=== PATIENT | female | born 1990 | race Caucasian/White ===

== ENCOUNTER 2017-05-05 14:02 | Emergency (ER) | payer SELFPAY ==
--- NOTE | 2017-05-05 14:29 | EDM.PDOC ---
ED HPI GENERAL MEDICAL PROBLEM - General Chief Complaint: ENT Problem Stated Complaint: TOOTH AID Time Seen by Provider: 05/05/17 14:25 Source of Information: Reports: Patient History Limitations: Reports: No Limitations - History of Present Illness INITIAL COMMENTS - FREE TEXT/NARRATIVE: History of present illness: [19-year-old female comes in with complaints of dental pain, swollen gums, and concern of abscess] Review of systems: As per history of present illness and below otherwise all systems reviewed and negative. Past medical history: As per history of present illness and as reviewed below otherwise noncontributory. Surgical history: As per history of present illness and as reviewed below otherwise noncontributory. Social history: No reported history of drug or alcohol abuse. Family history: As per history of present illness and as reviewed below otherwise noncontributory. Physical exam: HEENT: Atraumatic, normocephalic, pupils reactive, negative for conjunctival pallor or scleral icterus, mucous membranes moist, throat clear, neck supple, nontender, trachea midline. Lungs: Clear to auscultation, breath sounds equal bilaterally, chest nontender. Heart: S1S2, regular, negative for clicks, rubs, or JVD. Abdomen: Soft, nondistended, nontender. Negative for masses or hepatosplenomegaly. Negative for costovertebral tenderness. Pelvis: Stable nontender. Genitourinary: Deferred. Rectal: Deferred. Extremities: Atraumatic, negative for cords or calf pain. Neurovascular unremarkable. Neuro: Awake, alert, oriented. Cranial nerves II through XII unremarkable. Cerebellum unremarkable. Motor and sensory unremarkable throughout. Exam nonfocal. Dental: Multiple fractured teeth with caries swollen gums Diagnostics: [] Therapeutics: [] Impression: [#1 dental caries #2 fractured teeth #3 dental abscess] Plan: [Balls, antibiotics, pain medicine] Definitive disposition and diagnosis as appropriate pending reevaluation and review of above. 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: , 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) Other OB/BYN History: tubes tied, Musculoskeletal History: Reports: None Neurological History: Reports: None Psychiatric History: Reports: None Endocrine/Metabolic History: Reports: None Hematologic History: Reports: None Oncologic (Cancer) History: Reports: Cervix Dermatologic History: Reports: None - Past Surgical History Head Surgeries/Procedures: Reports: None HEENT Surgical History: Reports: None Cardiovascular Surgical History: Reports: None Respiratory Surgical History: Reports: None GI Surgical History: Reports: None Female Surgical History: Reports: None Endocrine Surgical History: Reports: None Neurological Surgical History: Reports: None Musculoskeletal Surgical History: Reports: None Oncologic Surgical History: Reports: None Dermatological Surgical History: Reports: None Social & Family History - Family History Family Medical History: Noncontributory - Tobacco Use Smoking Status *Q: Never Smoker - Caffeine Use Caffeine Use: Reports: Tea - Recreational Drug Use Recreational Drug Use: No ED ROS GENERAL - Review of Systems Review Of Systems: See Below (See history of present illness) ED EXAM, GENERAL - Physical Exam Exam: See Below (See history of present illness) Course - Vital Signs Last Recorded V/S: Last Vital Signs Temp 36.4 C 05/05/17 14:10 Pulse 88 05/05/17 14:10 Resp 20 05/05/17 14:10 BP 124/77 05/05/17 14:10 Pulse Ox 98 05/05/17 14:10 Departure - Departure Time of Disposition: 14:50 Disposition: Home, Self-Care 01 Condition: Good Clinical Impression: Dental abscess, Dental caries extending into dentin - Discharge Information Referrals: PCP,None [Primary Care Provider] - Additional Instructions: The following information is given to patients seen in the emergency department who are being discharged to home. This information is to outline your options for follow-up care. We provide all patients seen in our emergency department with a follow-up referral. The need for follow-up, as well as the timing and circumstances, are variable depending upon the specifics of your emergency department visit. If you don't have a primary care physician on staff, we will provide you with a referral. We always advise you to contact your personal physician following an emergency department visit to inform them of the circumstance of the visit and for follow-up with them and/or the need for any referrals to a consulting specialist. The emergency department will also refer you to a specialist when appropriate. This referral assures that you have the opportunity for follow-up care with a specialist. All of these measure are taken in an effort to provide you with optimal care, which includes your follow-up. Under all circumstances we always encourage you to contact your private physician who remains a resource for coordinating your care. When calling for follow-up care, please make the office aware that this follow-up is from your recent emergency room visit. If for any reason you are refused follow-up, please contact the [facility] Emergency Department at and asked to speak to the emergency department charge nurse. Take medication as directed Follow-up with dentist as discussed Return to ED as needed as discussed
[2017-05-05] MEDS ORDERED: Lidocaine 2% Viscous Solution 15 ML Cup PO ONE (14:30)
[2017-05-05] MEDS ORDERED: Benzocaine 20% Topical Spray UD MUCMEM ONE (14:30)
== END 2017-05-05 15:10 | disposition home or self-care (01) ==
LOC: MW.ED 14:02
DX: K04.7 Periapical abscess without sinus (principal); K03.81 Cracked tooth; K02.9 Dental caries, unspecified
CPT/HCPCS: 99282; A9270

== ENCOUNTER 2017-08-11 08:34 | Emergency (ER) | payer MEDICAID ==
[2017-08-11] MEDS ORDERED: Ondansetron 4 MG Tab.DIS PO ONE (09:24)
[2017-08-11] MEDS ORDERED: Albuterol/Ipratropium 3.0-0.5 MG/3 ML Neb Soln NEB ONE (09:28)
--- NOTE | 2017-08-11 09:28 | EDM.PDOC ---
ED HPI GENERAL MEDICAL PROBLEM - General Chief Complaint: General Stated Complaint: FEVER, BODY CHILLS Time Seen by Provider: 08/11/17 09:18 - History of Present Illness INITIAL COMMENTS - FREE TEXT/NARRATIVE: HISTORY AND PHYSICAL: History of present illness: The patient is a 19-year-old female with a history of asthma who presents with 4 days of subjective fever chills body aches tacky cough intermittent nausea and vomiting and loose stools. Patient says that her asthma has been acting up with the symptoms and that she did not get an influenza shot this year. Patient denies as she has had a bilateral tubal ligation and has no abdominal complaints. She has no urinary complaints and says she has been trying to take Gatorade and Pedialyte and able to intermittently tolerate and other times she will cough and vomited up. She has generalized body aches and malaise and she has 2 small children at home which is [id number] were also ill. Review of systems: As per history of present illness and below otherwise all systems reviewed and negative. Past medical history: As per history of present illness and as reviewed below otherwise noncontributory. Surgical history: As per history of present illness and as reviewed below otherwise noncontributory. Social history: No reported history of drug or alcohol abuse. Family history: As per history of present illness and as reviewed below otherwise noncontributory. Physical exam: Gen.: Well-developed well-nourished female who is nontoxic and has a hacking cough in the ER. Vital signs of an reviewed by me. HEENT: Atraumatic, normocephalic, pupils reactive, negative for conjunctival pallor or scleral icterus, mucous membranes moist, throat clear, neck supple, nontender, trachea midline. Lungs: Clear to auscultation with diminished breath sounds in the bases and occasional coarse breath sound but no worker breathing and no breathlessness, breath sounds equal bilaterally, chest nontender. Heart: S1S2, regular rate and rhythm no overt murmurs Abdomen: Soft, nondistended, nontender. NABS Pelvis: Deferred Genitourinary: Deferred. Rectal: Deferred. Extremities: Atraumatic, negative for cords or calf pain. Neurovascular unremarkable. Neuro: Awake, alert, oriented. Cranial nerves II through XII unremarkable. Cerebellum unremarkable. Motor and sensory unremarkable throughout. Exam nonfocal. Diagnostics: Chest x-ray influenza UA Patient requested blood testing so I will do CBC CMP Therapeutics: Zofran duo neb Patient is aware of all testing results and that we will give prednisone for home I will recommend continuing with her nebulizer treatments that she has as well as cough medicine and Zofran to use as needed. Although we have encouraged her to take sips of fluid here she has not been very good doing that but I encouraged her to continue Impression: Viral illness with history of asthma Definitive disposition and diagnosis as appropriate pending reevaluation and review of above. 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) Other OB/BYN History: tubes tied, Musculoskeletal History: Reports: None Neurological History: Reports: None Psychiatric History: Reports: None Endocrine/Metabolic History: Reports: None Hematologic History: Reports: None Oncologic (Cancer) History: Reports: Cervix Dermatologic History: Reports: None - Infectious Disease History Infectious Disease History: Reports: Chicken Pox, Shingles - Past Surgical History Head Surgeries/Procedures: Reports: None HEENT Surgical History: Reports: None Cardiovascular Surgical History: Reports: None Respiratory Surgical History: Reports: None GI Surgical History: Reports: None Female Surgical History: Reports: None Endocrine Surgical History: Reports: None Neurological Surgical History: Reports: None Musculoskeletal Surgical History: Reports: None Oncologic Surgical History: Reports: None Dermatological Surgical History: Reports: None Social & Family History - Family History Family Medical History: Noncontributory - Tobacco Use Smoking Status *Q: Former Smoker Used Tobacco, but Quit: Yes Month Tobacco Last Used: 2013 - Caffeine Use Caffeine Use: Reports: Tea - Recreational Drug Use Recreational Drug Use: No ED ROS GENERAL - Review of Systems Review Of Systems: ROS reveals no pertinent complaints other than HPI. ED EXAM, GENERAL - Physical Exam Exam: See Below (See dictation) Course - Vital Signs Last Recorded V/S: Last Vital Signs Temp 36.6 C 08/11/17 08:55 Pulse 83 08/11/17 08:55 Resp 18 08/11/17 08:55 BP 125/67 08/11/17 08:55 Pulse Ox 98 08/11/17 08:55 - Orders/Labs/Meds Orders: Active Orders 24 hr Category Date Time Status RT Aerosol Therapy [RC] ASDIRECTED Care 08/11/17 09:28 Active CULTURE URINE [RM] Stat Lab 08/11/17 09:55 Received Labs: Laboratory Tests 08/11/17 08/11/17 08/11/17 Range/Units 09:55 10:15 10:15 WBC 6.92 (4.0-11.0) K/uL RBC 5.26 (4.30-5.90) M/uL Hgb 14.4 (12.0-16.0) g/dL Hct 42.5 (36.0-46.0) % MCV 80.8 (80.0-98.0) fL MCH 27.4 (27.0-32.0) pg MCHC 33.9 (31.0-37.0) g/dL RDW Std Deviation 38.9 (28.0-62.0) fl RDW Coeff of Meredith 13 (11.0-15.0) % Plt Count 196 (150-400) K/uL MPV 11.80 (7.40-12.00) fL Neut % (Auto) 49.1 (48.0-80.0) % Lymph % (Auto) 39.9 (16.0-40.0) % [place] % (Auto) 8.2 (0.0-15.0) % Eos % (Auto) 1.9 (0.0-7.0) % Baso % (Auto) 0.9 (0.0-1.5) % Neut # (Auto) 3.4 (1.4-5.7) K/uL Lymph # (Auto) 2.8 H (0.6-2.4) K/uL [place] # (Auto) 0.6 (0.0-0.8) K/uL Eos # (Auto) 0.1 (0.0-0.7) K/uL Baso # (Auto) 0.1 (0.0-0.1) K/uL Nucleated RBC % 0.0 /100WBC Nucleated RBCs # 0 K/uL Sodium 137 (136-146) mmol/L Potassium 3.8 (3.5-5.1) mmol/L Chloride 109 (98-110) mmol/L Carbon Dioxide 19 L (21-31) mmol/L BUN 13 (6.0-23.0) mg/dL Creatinine 0.8 (0.6-1.5) mg/dL Est Cr Clr Drug Dosing 105.61 mL/min Estimated GFR (MDRD) > 60.0 ml/min Glucose 103 (60-110) mg/dL Calcium 9.4 (8.8-10.8) mg/dL Total Bilirubin 0.4 (0.1-1.5) mg/dL AST 13 (5-40) IU/L ALT 24 (8-54) IU/L Alkaline Phosphatase 72 (40-150) Total Protein 6.9 (6.0-8.0) g/dL Albumin 4.2 (3.5-5.0) g/dL Globulin 2.7 (2.0-3.5) g/dL Albumin/Globulin Ratio 1.6 (1.3-2.8) Urine Color YELLOW Urine Appearance CLEAR Urine pH 6.0 (5.0-8.0) Ur Specific [place] 1.025 (1.001-1.035) Urine Protein NEGATIVE (NEGATIVE) mg/dL Urine Glucose (UA) NEGATIVE (NEGATIVE) mg/dL Urine Ketones NEGATIVE (NEGATIVE) mg/dL Urine Occult Blood NEGATIVE (NEGATIVE) Urine Nitrite POSITIVE H (NEGATIVE) Urine Bilirubin NEGATIVE (NEGATIVE) Urine Urobilinogen 0.2 (<2.0) EU/dL Ur Leukocyte Esterase NEGATIVE (NEGATIVE) Urine RBC 0-1 (0-2/HPF) Urine WBC 0-1 (0-5/HPF) Ur Epithelial Cells FEW (NONE-FEW) Urine Bacteria 1+ H (NEGATIVE) Meds: Medications Discontinued Medications Generic Name Dose Route Start Last Admin Trade Name Freq PRN Reason Stop Dose Admin Albuterol/Ipratropium 3 ml 08/11/17 09:28 08/11/17 09:32 Duoneb 3.0-0.5 Mg/3 Ml NEB 08/11/17 09:29 3 ml ONETIME ONE Administration Ondansetron HCl 4 mg 08/11/17 09:24 08/11/17 09:58 Zofran Odt PO 08/11/17 09:25 4 mg ONETIME ONE Administration Departure - Departure Time of Disposition: 11:04 Disposition: Home, Self-Care 01 Condition: Good Clinical Impression: Viral illness - Discharge Information Referrals: PCP,None [Primary Care Provider] - Forms: ED Department Discharge Additional Instructions: The following information is given to patients seen in the emergency department who are being discharged to home. This information is to outline your options for follow-up care. We provide all patients seen in our emergency department with a follow-up referral. The need for follow-up, as well as the timing and circumstances, are variable depending upon the specifics of your emergency department visit. If you don't have a primary care physician on staff, we will provide you with a referral. We always advise you to contact your personal physician following an emergency department visit to inform them of the circumstance of the visit and for follow-up with them and/or the need for any referrals to a consulting specialist. The emergency department will also refer you to a specialist when appropriate. This referral assures that you have the opportunity for followup care with a specialist. All of these measure are taken in an effort to provide you with optimal care, which includes your followup. Under all circumstances we always encourage you to contact your private physician who remains a resource for coordinating your care. When calling for followup care, please make the office aware that this follow-up is from your recent emergency room visit. If for any reason you are refused follow-up, please contact the [facility] emergency department at and ask to speak to the emergency department charge nurse. [facility] Primary care- [place] [address] Please continue to push fluids such as Gatorade and water and juices and eat small bites of food. You should be sipping and drinking fluids all throughout your awake time. Please continue to use her nebulizer treatments at home every 6 hours and take all medications as prescribed. Please call and follow-up with one of our clinic providers as we discussed next week and return to ER as needed and as discussed - My Orders Last 24 Hours: My Active Orders 08/11/17 09:28 RT Aerosol Therapy [RC] ASDIRECTED 08/11/17 09:55 CULTURE URINE [RM] Stat - Assessment/Plan Last 24 Hours: My Active Orders 08/11/17 09:28 RT Aerosol Therapy [RC] ASDIRECTED 08/11/17 09:55 CULTURE URINE [RM] Stat
--- NOTE | 2017-08-11 10:05 | CR ---
PA and lateral chest Clinical history: Chest pain and shortness of breath Comparison: None Findings: Costophrenic angles are sharp. The cardiac mediastinum is normal and the lungs are clear. Impression: Normal chest
[2017-08-11 10:49] LABS: CHLORIDE,CL 109 mmol/L (98-110); SODIUM,NA 137 mmol/L (136-146)
== END 2017-08-11 11:10 | disposition home or self-care (01) ==
LOC: MW.ED 08:34
DX: B34.9 Viral infection, unspecified (principal); Z87.891 Personal history of nicotine dependence; Z91.018 Allergy to other foods
CPT/HCPCS: 36415; 71046; 80053; 81001; 85025; 87086; 87088; 87186; 87804; 94640; 99284; A9270

== ENCOUNTER 2017-09-04 09:11 | Emergency (ER) | payer MEDICAID ==
[2017-09-04] MEDS ORDERED: Ondansetron 4 MG Tab.DIS PO ONE (10:11)
--- NOTE | 2017-09-04 10:29 | EDM.PDOC ---
ED HPI GENERAL MEDICAL PROBLEM - General Chief Complaint: General Stated Complaint: DIZZY Time Seen by Provider: 09/04/17 10:10 Source of Information: Reports: Patient History Limitations: Reports: No Limitations - History of Present Illness INITIAL COMMENTS - FREE TEXT/NARRATIVE: HISTORY AND PHYSICAL: History of present illness: patient is a 27-year-old female who presents to the emergency room today with complaints of cough, nausea, vomiting and diarrhea 3 weeks. She states she was seen last week in the emergency room and was diagnosed with viral illness. She states she has not improved since that time and is concerned "something worse". Today she presented to work and had multiple episodes of emesis and her employee her made her come to the emergency room for further evaluation. She denies any chest pain, shortness breath, fever or chills. Does have some low abdominal pain, without tenderness, which she reports is from "vomiting". denies any chance of as she has had a hysterectomy. Review of systems: As per history of present illness and below otherwise all systems reviewed and negative. Past medical history: As per history of present illness and as reviewed below otherwise noncontributory. Surgical history: As per history of present illness and as reviewed below otherwise noncontributory. Social history: No reported history of drug or alcohol abuse. Family history: As per history of present illness and as reviewed below otherwise noncontributory. Physical exam: HEENT: Atraumatic, normocephalic, pupils reactive, negative for conjunctival pallor or scleral icterus, mucous membranes moist, throat clear, neck supple, nontender, trachea midline. Lungs: Clear to auscultation, breath sounds equal bilaterally, chest nontender. Dry nonproductive cough noted Heart: S1S2, regular rate and rhythm Abdomen: Soft, nondistended, nontenderinto no rebound tenderness. Negative for masses or hepatosplenomegaly. Negative for costovertebral tenderness. Pelvis: Stable nontender. Genitourinary: Deferred. Rectal: Deferred. Extremities: Atraumatic, moves all extremities herself without difficulty or deficits,negative for cords or calf pain. Neurovascular unremarkable. Neuro: Awake, alert, oriented. Cranial nerves II through XII unremarkable. Cerebellum unremarkable. Motor and sensory unremarkable throughout. Exam nonfocal. 08/11/2017: Was seen in the emergency room and had lab work and a chest x-ray done at that time for her symptoms as stated above. Her x-ray was normal and lab work was also within normal range. She was treated as a viral illness and given a prescription for Zofran. Labs show UTI. will treat with Levaquin and Pyridium. A urine culture was added. She does have some Zofran at home for use. She voices understanding to care plan and is agreeable. Denies any further questions at this time. Diagnostics: CBC, CMP, amylase, lipase, UA, urine , [employer]: Zofran Impression: Bronchitis UTI Plan: 1. Labs show UTI, Culture will be added. Will place on Levaquin and Pyridium. 2. Tylenol and/or ibuprofen as needed for pain management. Drink plenty of fluids to prevent dehydration. 3. Follow up with her primary caregiver in the next 1-2 days. Return to the ED as needed and as discussed. Definitive disposition and diagnosis as appropriate pending reevaluation and review of above. Duration: Week(s): Location: Reports: Abdomen - Related Data Allergies Allergy/AdvReac Type Severity Reaction Status Date / Time cocoa Allergy Anaphylactic Verified 09/04/17 09:46 Shock Home Meds: Home Meds Levofloxacin 250 mg PO BID #6 tablet 09/04/17 [Rx] Phenazopyridine [Pyridium] 100 mg PO TID 2 Days #6 tab 09/04/17 [Rx] Past Medical History HEENT History: Reports: None Cardiovascular History: Reports: None Respiratory History: Reports: Asthma Gastrointestinal History: Reports: 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) Other Gastrointestinal History: ulcers Genitourinary History: Reports: None, 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) Other Genitourinary History: currently being treated fro UTI 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 History: Reports: , 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) Other OB/BYN History: tubes tied, Musculoskeletal History: Reports: None Neurological History: Reports: None Psychiatric History: Reports: None Endocrine/Metabolic History: Reports: None Hematologic History: Reports: None Oncologic (Cancer) History: Reports: Cervix Dermatologic History: Reports: None - Infectious Disease History Infectious Disease History: Reports: Chicken Pox, Shingles - Past Surgical History Head Surgeries/Procedures: Reports: None HEENT Surgical History: Reports: None Cardiovascular Surgical History: Reports: None Respiratory Surgical History: Reports: None GI Surgical History: Reports: None Female Surgical History: Reports: None Endocrine Surgical History: Reports: None Neurological Surgical History: Reports: None Musculoskeletal Surgical History: Reports: None Oncologic Surgical History: Reports: None Dermatological Surgical History: Reports: None Social & Family History - Family History Family Medical History: Noncontributory - Tobacco Use Smoking Status *Q: Never Smoker Used Tobacco, but Quit: Yes Month Tobacco Last Used: 2013 - Caffeine Use Caffeine Use: Reports: None - Recreational Drug Use Recreational Drug Use: No ED ROS GENERAL - Review of Systems Review Of Systems: See Below ED EXAM, GENERAL - Physical Exam Exam: See Below (see dictation) Course - Vital Signs Last Recorded V/S: Last Vital Signs Temp 98.4 F 09/04/17 09:50 Pulse 76 09/04/17 09:50 Resp 16 09/04/17 09:50 BP 118/55 L 09/04/17 09:50 Pulse Ox 94 L 09/04/17 09:50 - Orders/Labs/Meds Orders: Active Orders 24 hr Category Date Time Status CULTURE URINE [RM] Stat Lab 09/04/17 11:43 Ordered Labs: Laboratory Tests 09/04/17 09/04/17 09/04/17 Range/Units 10:37 10:37 10:37 WBC 5.76 (4.0-11.0) K/uL RBC 5.15 (4.30-5.90) M/uL Hgb 14.2 (12.0-16.0) g/dL Hct 42.3 (36.0-46.0) % MCV 82.1 (80.0-98.0) fL MCH 27.6 (27.0-32.0) pg MCHC 33.6 (31.0-37.0) g/dL RDW Std Deviation 40.3 (28.0-62.0) fl RDW Coeff of Meredith 13 (11.0-15.0) % Plt Count 240 (150-400) K/uL MPV 11.60 (7.40-12.00) fL Neut % (Auto) 50.7 (48.0-80.0) % Lymph % (Auto) 37.2 (16.0-40.0) % Cache % (Auto) 9.2 (0.0-15.0) % Eos % (Auto) 1.9 (0.0-7.0) % Baso % (Auto) 1.0 (0.0-1.5) % Neut # (Auto) 2.9 (1.4-5.7) K/uL Lymph # (Auto) 2.1 (0.6-2.4) K/uL Cache # (Auto) 0.5 (0.0-0.8) K/uL Eos # (Auto) 0.1 (0.0-0.7) K/uL Baso # (Auto) 0.1 (0.0-0.1) K/uL Nucleated RBC % 0.0 /100WBC Nucleated RBCs # 0 K/uL Sodium 140 (136-146) mmol/L Potassium 4.1 (3.5-5.1) mmol/L Chloride 110 (98-110) mmol/L Carbon Dioxide 22 (21-31) mmol/L BUN 9 (6.0-23.0) mg/dL Creatinine 0.8 (0.6-1.5) mg/dL Est Cr Clr Drug Dosing 105.61 mL/min Estimated GFR (MDRD) > 60.0 ml/min Glucose 80 (60-110) mg/dL Calcium 9.4 (8.8-10.8) mg/dL Total Bilirubin 0.6 (0.1-1.5) mg/dL AST 18 (5-40) IU/L ALT 28 (8-54) IU/L Alkaline Phosphatase 66 (40-150) Total Protein 6.7 (6.0-8.0) g/dL Albumin 4.2 (3.5-5.0) g/dL Globulin 2.5 (2.0-3.5) g/dL Albumin/Globulin Ratio 1.7 (1.3-2.8) Amylase 48 (10-90) U/L Lipase 26 (7-80) U/L Urine Color Urine Appearance Urine pH (5.0-8.0) Ur Specific [place] (1.001-1.035) Urine Protein (NEGATIVE) mg/dL Urine Glucose (UA) (NEGATIVE) mg/dL Urine Ketones (NEGATIVE) mg/dL Urine Occult Blood (NEGATIVE) Urine Nitrite (NEGATIVE) Urine Bilirubin (NEGATIVE) Urine Urobilinogen (<2.0) EU/dL Ur Leukocyte Esterase (NEGATIVE) Urine RBC (0-2/HPF) Urine WBC (0-5/HPF) Ur Epithelial Cells (NONE-FEW) Urine Bacteria (NEGATIVE) Urine Mucus (NONE-MOD) Urine HCG, Qual (NEGATIVE) Monoscreen NEGATIVE (NEG) 09/04/17 09/04/17 Range/Units 11:02 11:02 WBC (4.0-11.0) K/uL RBC (4.30-5.90) M/uL Hgb (12.0-16.0) g/dL Hct (36.0-46.0) % MCV (80.0-98.0) fL MCH (27.0-32.0) pg MCHC (31.0-37.0) g/dL RDW Std Deviation (28.0-62.0) fl RDW Coeff of Meredith (11.0-15.0) % Plt Count (150-400) K/uL MPV (7.40-12.00) fL Neut % (Auto) (48.0-80.0) % Lymph % (Auto) (16.0-40.0) % Cache % (Auto) (0.0-15.0) % Eos % (Auto) (0.0-7.0) % Baso % (Auto) (0.0-1.5) % Neut # (Auto) (1.4-5.7) K/uL Lymph # (Auto) (0.6-2.4) K/uL Cache # (Auto) (0.0-0.8) K/uL Eos # (Auto) (0.0-0.7) K/uL Baso # (Auto) (0.0-0.1) K/uL Nucleated RBC % /100WBC Nucleated RBCs # K/uL Sodium (136-146) mmol/L Potassium (3.5-5.1) mmol/L Chloride (98-110) mmol/L Carbon Dioxide (21-31) mmol/L BUN (6.0-23.0) mg/dL Creatinine (0.6-1.5) mg/dL Est Cr Clr Drug Dosing mL/min Estimated GFR (MDRD) ml/min Glucose (60-110) mg/dL Calcium (8.8-10.8) mg/dL Total Bilirubin (0.1-1.5) mg/dL AST (5-40) IU/L ALT (8-54) IU/L Alkaline Phosphatase (40-150) Total Protein (6.0-8.0) g/dL Albumin (3.5-5.0) g/dL Globulin (2.0-3.5) g/dL Albumin/Globulin Ratio (1.3-2.8) Amylase (10-90) U/L Lipase (7-80) U/L Urine Color YELLOW Urine Appearance CLEAR Urine pH 5.5 (5.0-8.0) Ur Specific [place] 1.025 (1.001-1.035) Urine Protein NEGATIVE (NEGATIVE) mg/dL Urine Glucose (UA) NEGATIVE (NEGATIVE) mg/dL Urine Ketones NEGATIVE (NEGATIVE) mg/dL Urine Occult Blood NEGATIVE (NEGATIVE) Urine Nitrite POSITIVE H (NEGATIVE) Urine Bilirubin NEGATIVE (NEGATIVE) Urine Urobilinogen 0.2 (<2.0) EU/dL Ur Leukocyte Esterase NEGATIVE (NEGATIVE) Urine RBC 0-1 (0-2/HPF) Urine WBC 0-1 (0-5/HPF) Ur Epithelial Cells FEW (NONE-FEW) Urine Bacteria 1+ H (NEGATIVE) Urine Mucus LIGHT (NONE-MOD) Urine HCG, Qual NEGATIVE (NEGATIVE) Monoscreen (NEG) Meds: Medications Discontinued Medications Generic Name Dose Route Start Last Admin Trade Name Freq PRN Reason Stop Dose Admin Ondansetron HCl 4 mg 09/04/17 10:11 09/04/17 11:05 Zofran Odt PO 09/04/17 10:12 4 mg ONETIME ONE Administration Departure - Departure Time of Disposition: 11:47 Disposition: Home, Self-Care 01 Clinical Impression: Bronchitis UTI (urinary tract infection) Qualifiers: Urinary tract infection type: acute cystitis Hematuria presence: without hematuria Qualified Code(s): N30.00 - Acute cystitis without hematuria - Discharge Information Prescriptions: Levofloxacin 250 mg PO BID #6 tablet Phenazopyridine [Pyridium] 100 mg PO TID 2 Days #6 tab Referrals: PCP,None [Primary Care Provider] - Forms: ED Department Discharge Additional Instructions: My general discharge The following information is given to patients seen in the emergency department who are being discharged to home. This information is to outline your options for follow-up care. We provide all patients seen in our emergency department with a follow-up referral. The need for follow-up, as well as the timing and circumstances, are variable depending upon the specifics of your emergency department visit. If you don't have a primary care physician on staff, we will provide you with a referral. We always advise you to contact your personal physician following an emergency department visit to inform them of the circumstance of the visit and for follow-up with them and/or the need for any referrals to a consulting specialist. The emergency department will also refer you to a specialist when appropriate. This referral assures that you have the opportunity for follow-up care with a specialist. All of these measure are taken in an effort to provide you with optimal care, which includes your follow-up. Under all circumstances we always encourage you to contact your private physician who remains a resource for coordinating your care. When calling for follow-up care, please make the office aware that this follow-up is from your recent emergency room visit. If for any reason you are refused follow-up, please contact the [facility] Emergency Department at and asked to speak to the emergency department charge nurse. [facility] [address] [place] [address] 1. Labs show UTI, Culture will be added. Will place on Levaquin and Pyridium. 2. Tylenol and/or ibuprofen as needed for pain management. Drink plenty of fluids to prevent dehydration. 3. Follow up with her primary caregiver in the next 1-2 days. Return to the ED as needed and as discussed. - My Orders Last 24 Hours: My Active Orders 09/04/17 11:43 CULTURE URINE [RM] Stat - Assessment/Plan Last 24 Hours: My Active Orders 09/04/17 11:43 CULTURE URINE [RM] Stat
[2017-09-04 11:25] LABS: CHLORIDE,CL 110 mmol/L (98-110); SODIUM,NA 140 mmol/L (136-146)
== END 2017-09-04 11:58 | disposition home or self-care (01) ==
LOC: MW.ED 09:11
DX: J40 Bronchitis, not specified as acute or chronic (principal); N30.00 Acute cystitis without hematuria; Z87.891 Personal history of nicotine dependence; Z91.018 Allergy to other foods
CPT/HCPCS: 36415; 80053; 81001; 81025; 82150; 83690; 85025; 86308; 87086; 99283; A9270; 87088; 87186; 99284

== ENCOUNTER 2017-10-26 09:32 | Emergency (ER) | payer MEDICAID ==
--- NOTE | 2017-10-26 10:16 | EDM.PDOC ---
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 She reports that she started having spotting on Monday and has had intermittent "gushes of blood". Reports she has not had a menstrual period since January 2016. Review of systems: As per history of present illness and below otherwise all systems reviewed and negative. Past medical history: As per history of present illness and as reviewed below otherwise noncontributory. Surgical history: As per history of present illness and as reviewed below otherwise noncontributory. Social history: No reported history of drug or alcohol abuse. Family history: As per history of present illness and as reviewed below otherwise noncontributory. Physical exam: General: Developed and well-nourished 27-year-old female. Alert and oriented. Nontoxic appearing and in no acute distress. HEENT: Atraumatic, normocephalic, pupils equal and reactive bilaterally, negative for conjunctival pallor or scleral icterus, mucous membranes moist, throat clear, neck supple, nontender, trachea midline. No drooling or trismus noted. No meningeal signs Lungs: Clear to auscultation, breath sounds equal bilaterally, chest nontender. Heart: S1S2, regular rate and rhythm without overt murmur Abdomen: Soft, nondistended, tenderness to the right groin/pelvis. Negative for masses or hepatosplenomegaly. Negative for costovertebral tenderness. Pelvis: Stable. Tenderness with palpation Genitourinary: This was done with a chaparone at the bedside. External genitalia appears intact and within normal limits. No blood noted in the vaginal vault; white thin watery discharge is noted. Cervical os is closes. Patient is very tender with speculum exam. Bimanual was not able to be performed as she states touching causes too much pain to her right adnexa. Rectal: Deferred. Skin: Intact, warm, dry. No lesions or rashes noted. Extremities: Atraumatic, negative for cords or calf pain. Neurovascular unremarkable. Neuro: Awake, alert, oriented. Cranial nerves II through XII unremarkable. Cerebellum unremarkable. Motor and sensory unremarkable throughout. Exam nonfocal. Notes: Cultures were obtained during the pelvic portion of our exam. Patient is very tender with speculum exam. Pain to the right pelvis. Patient reports that she does have pain with sexual intercourse which has been going on for about 4 months. She reports she was seen by an [facility] TE[facility] INSPECTOR in [place] for this and they did do STD testing which was negative. Labs are normal with the exception of the Urinalysis shows UTI. Urine culture will be added. Ultrasound Sounds shows a Small cystic space noted within the myometrium of the uterine fundus, possibly a focal area of adenomyosis. It did share these findings with the patient. I discussed possibility of PID, she declines any possibility of STDs at this time. I did do a send out gonorrhea and chlamydia. She would prefer that I wait for those results to come back before treating her with Rocephin, azithromycin and Flagyl. Give her some Macrobid 100 mg twice a day 7 days and tramadol 50 mg, dispense 10, no refill. Discussed the importance of follow-up with her hand, and those for numbers will be given to her before discharge. She voices understanding and is agreeable to plan of care. She denies any further questions at this time. Diagnostics: CBC, CMP, UA, hCGU, ultrasound pelvis non-OB, VENESSA, Therapeutics: [] Impression: Pelvic Pain UTI Plan: 1. Please take your antibiotic as prescribed. Increase your fluids. 2. Tylenol and/or ibuprofen as needed. Tramadol for nighttime use as this may cause drowsiness. 3. Please follow-up with the LAMP TE[employer] AND INSPECTOR as we discussed in the next couple days. Return to the ED as needed and as discussed. Definitive disposition and diagnosis as appropriate pending reevaluation and review of above. pelvic pain Pain Score (Numeric/FACES): 8 - Related Data Allergies Allergy/AdvReac Type Severity Reaction Status Date / Time cocoa Allergy Anaphylactic Verified 10/26/17 09:40 Shock Home Meds: Home Meds Albuterol [Proventil Neb Soln] 10/26/17 [History] Fluticasone/Salmeterol [Advair 500-50] 10/26/17 [History] Montelukast [Singulair] 10/26/17 [History] Past Medical History HEENT History: Reports: None Cardiovascular History: Reports: None Respiratory History: Reports: Asthma Gastrointestinal History: Reports: 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) Other Gastrointestinal History: ulcers Genitourinary History: Reports: None Other Genitourinary History: currently being treated fro UTI 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: , 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) Other OB/BYN History: tubes tied, Musculoskeletal History: Reports: None Neurological History: Reports: None Psychiatric History: Reports: None Endocrine/Metabolic History: Reports: None Hematologic History: Reports: None Oncologic (Cancer) History: Reports: Cervix Dermatologic History: Reports: None - Infectious Disease History Infectious Disease History: Reports: Chicken Pox - Past Surgical History Head Surgeries/Procedures: Reports: None HEENT Surgical History: Reports: None Cardiovascular Surgical History: Reports: None Respiratory Surgical History: Reports: None GI Surgical History: Reports: None Female Surgical History: Reports: None Endocrine Surgical History: Reports: None Neurological Surgical History: Reports: None Musculoskeletal Surgical History: Reports: None Other Musculoskeletal Surgeries/Procedures:: shoulder surgery x 2 Oncologic Surgical History: Reports: None Dermatological Surgical History: Reports: None Social & Family History - Family History Family Medical History: Noncontributory - Tobacco Use Smoking Status *Q: Never Smoker Used Tobacco, but Quit: Yes Month/Year Tobacco Last Used: 2013 - Caffeine Use Caffeine Use: Reports: Coffee, Energy Drinks, Soda, Tea - Recreational Drug Use Recreational Drug Use: No ED ROS GENERAL - Review of Systems Review Of Systems: ROS reveals no pertinent complaints other than HPI. ED EXAM - Physical Exam Exam: See Below (See dictation) Course - Vital Signs Last Recorded V/S: Last Vital Signs Temp 96.5 F 10/26/17 09:41 Pulse 71 10/26/17 09:41 Resp 20 10/26/17 09:41 BP 125/96 H 10/26/17 09:41 Pulse Ox 96 10/26/17 09:41 - Orders/Labs/Meds Orders: Active Orders 24 hr Category Date Time Status CHLAMYDIA AND GONORRHEA BY TMA Stat Lab 10/26/17 11:00 Received CULTURE URINE [RM] Stat Lab 10/26/17 09:46 Ordered HCG QUALITATIVE,URINE [URCHEM] Stat Lab 10/26/17 09:46 Ordered UA W/MICROSCOPIC [URIN] Stat Lab 10/26/17 09:46 Ordered Labs: Laboratory Tests 10/26/17 10/26/17 10/26/17 Range/Units 09:46 09:46 10:11 WBC 8.42 (4.0-11.0) K/uL RBC 5.32 (4.30-5.90) M/uL Hgb 14.7 (12.0-16.0) g/dL Hct 44.1 (36.0-46.0) % MCV 82.9 (80.0-98.0) fL MCH 27.6 (27.0-32.0) pg MCHC 33.3 (31.0-37.0) g/dL RDW Std Deviation 38.7 (28.0-62.0) fl RDW Coeff of Meredith 13 (11.0-15.0) % Plt Count 234 (150-400) K/uL MPV 11.40 (7.40-12.00) fL Neut % (Auto) 68.2 (48.0-80.0) % Lymph % (Auto) 23.0 (16.0-40.0) % [place] % (Auto) 7.5 (0.0-15.0) % Eos % (Auto) 0.7 (0.0-7.0) % Baso % (Auto) 0.6 (0.0-1.5) % Neut # (Auto) 5.7 (1.4-5.7) K/uL Lymph # (Auto) 1.9 (0.6-2.4) K/uL [place] # (Auto) 0.6 (0.0-0.8) K/uL Eos # (Auto) 0.1 (0.0-0.7) K/uL Baso # (Auto) 0.1 (0.0-0.1) K/uL Nucleated RBC % 0.0 /100WBC Nucleated RBCs # 0 K/uL Sodium (136-145) mmol/L Potassium (3.5-5.1) mmol/L Chloride (98-107) mmol/L Carbon Dioxide (21.0-32.0) mmol/L BUN (7.0-18.0) mg/dL Creatinine (0.6-1.0) mg/dL Est Cr Clr Drug Dosing mL/min Estimated GFR (MDRD) ml/min Glucose (74-106) mg/dL Calcium (8.5-10.1) mg/dL Total Bilirubin (0.2-1.0) mg/dL AST (15-37) IU/L ALT (14-63) IU/L Alkaline Phosphatase (46-116) U/L Total Protein (6.4-8.2) g/dL Albumin (3.4-5.0) g/dL Globulin (2.0-3.5) g/dL Albumin/Globulin Ratio (1.3-2.8) Urine Color DARK YELLOW Urine Appearance CLOUDY Urine pH 5.0 (5.0-8.0) Ur Specific [place] >= 1.030 (1.001-1.035) Urine Protein TRACE (NEGATIVE) mg/dL Urine Glucose (UA) NEGATIVE (NEGATIVE) mg/dL Urine Ketones NEGATIVE (NEGATIVE) mg/dL Urine Occult Blood LARGE H (NEGATIVE) Urine Nitrite NEGATIVE (NEGATIVE) Urine Bilirubin SMALL H (NEGATIVE) Urine Urobilinogen 0.2 (<2.0) EU/dL Ur Leukocyte Esterase NEGATIVE (NEGATIVE) Urine RBC 10-15 (0-2/HPF) Urine WBC 2-4 (0-5/HPF) Ur Epithelial Cells MODERATE (NONE-FEW) Urine Bacteria FEW (NEGATIVE) Urine HCG, Qual NEGATIVE (NEGATIVE) Josselyn species DNA (NEGATIVE) [place]rella DNA Probe (NEGATIVE) Trichomonas DNA Probe (NEGATIVE) 10/26/17 10/26/17 Range/Units 10:11 11:00 WBC (4.0-11.0) K/uL RBC (4.30-5.90) M/uL Hgb (12.0-16.0) g/dL Hct (36.0-46.0) % MCV (80.0-98.0) fL MCH (27.0-32.0) pg MCHC (31.0-37.0) g/dL RDW Std Deviation (28.0-62.0) fl RDW Coeff of Meredith (11.0-15.0) % Plt Count (150-400) K/uL MPV (7.40-12.00) fL Neut % (Auto) (48.0-80.0) % Lymph % (Auto) (16.0-40.0) % [place] % (Auto) (0.0-15.0) % Eos % (Auto) (0.0-7.0) % Baso % (Auto) (0.0-1.5) % Neut # (Auto) (1.4-5.7) K/uL Lymph # (Auto) (0.6-2.4) K/uL [place] # (Auto) (0.0-0.8) K/uL Eos # (Auto) (0.0-0.7) K/uL Baso # (Auto) (0.0-0.1) K/uL Nucleated RBC % /100WBC Nucleated RBCs # K/uL Sodium 142 (136-145) mmol/L Potassium 4.0 (3.5-5.1) mmol/L Chloride 110 H (98-107) mmol/L Carbon Dioxide 22.6 (21.0-32.0) mmol/L BUN 17 (7.0-18.0) mg/dL Creatinine 0.9 (0.6-1.0) mg/dL Est Cr Clr Drug Dosing 93.88 mL/min Estimated GFR (MDRD) > 60.0 ml/min Glucose 97 (74-106) mg/dL Calcium 9.2 (8.5-10.1) mg/dL Total Bilirubin 0.6 (0.2-1.0) mg/dL AST 14 L (15-37) IU/L ALT 23 (14-63) IU/L Alkaline Phosphatase 71 (46-116) U/L Total Protein 7.4 (6.4-8.2) g/dL Albumin 4.3 (3.4-5.0) g/dL Globulin 3.1 (2.0-3.5) g/dL Albumin/Globulin Ratio 1.4 (1.3-2.8) Urine Color Urine Appearance Urine pH (5.0-8.0) Ur Specific [place] (1.001-1.035) Urine Protein (NEGATIVE) mg/dL Urine Glucose (UA) (NEGATIVE) mg/dL Urine Ketones (NEGATIVE) mg/dL Urine Occult Blood (NEGATIVE) Urine Nitrite (NEGATIVE) Urine Bilirubin (NEGATIVE) Urine Urobilinogen (<2.0) EU/dL Ur Leukocyte Esterase (NEGATIVE) Urine RBC (0-2/HPF) Urine WBC (0-5/HPF) Ur Epithelial Cells (NONE-FEW) Urine Bacteria (NEGATIVE) Urine HCG, Qual (NEGATIVE) Josselyn species DNA NEGATIVE (NEGATIVE) Gardnerella DNA Probe NEGATIVE (NEGATIVE) Trichomonas DNA Probe NEGATIVE (NEGATIVE) Meds: Medications Discontinued Medications Generic Name Dose Route Start Last Admin Trade Name Ricardo PRN Reason Stop Dose Admin Ketorolac Tromethamine 60 mg 10/26/17 11:37 10/26/17 11:45 Toradol IM 10/26/17 11:38 60 mg ONETIME ONE Administration Departure - Departure Time of Disposition: 12:49 Disposition: Home, Self-Care 01 Clinical Impression: Pelvic pain - Discharge Information Referrals: Dionicio Chirinos MD [Primary Care Provider] - Forms: ED Department Discharge Additional Instructions: The following information is given to patients seen in the emergency department who are being discharged to home. This information is to outline your options for follow-up care. We provide all patients seen in our emergency department with a follow-up referral. The need for follow-up, as well as the timing and circumstances, are variable depending upon the specifics of your emergency department visit. If you don't have a primary care physician on staff, we will provide you with a referral. We always advise you to contact your personal physician following an emergency department visit to inform them of the circumstance of the visit and for follow-up with them and/or the need for any referrals to a consulting specialist. The emergency department will also refer you to a specialist when appropriate. This referral assures that you have the opportunity for follow-up care with a specialist. All of these measure are taken in an effort to provide you with optimal care, which includes your follow-up. Under all circumstances we always encourage you to contact your private physician who remains a resource for coordinating your care. When calling for follow-up care, please make the office aware that this follow-up is from your recent emergency room visit. If for any reason you are refused follow-up, please contact the [facility] Emergency Department at and asked to speak to the emergency department charge nurse. [facility] Primary Care - Women's [facility] [address] [place] [id number] [facility] [address] [place] [id number] 1. Please take your antibiotic as prescribed. Increase your fluids. 2. Tylenol and/or ibuprofen as needed. Tramadol for nighttime use as this may cause drowsiness. 3. Please follow-up with the LAMP TESTER AND INSPECTOR as we discussed in the next couple days. Return to the ED as needed and as discussed. - My Orders Last 24 Hours: My Active Orders 10/26/17 09:46 CULTURE URINE [RM] Stat 10/26/17 11:00 CHLAMYDIA AND GONORRHEA BY TMA Stat - Assessment/Plan Last 24 Hours: My Active Orders 10/26/17 09:46 CULTURE URINE [RM] Stat 10/26/17 11:00 CHLAMYDIA AND GONORRHEA BY TMA Stat
[2017-10-26 10:41] LABS: CHLORIDE,CL 110 mmol/L (98-107); SODIUM,NA 142 mmol/L (136-145)
--- NOTE | 2017-10-26 10:59 | US ---
EXAMINATION: Transvaginal pelvic ultrasound HISTORY: Pain COMPARISON: None TECHNIQUE: Grayscale, color Doppler, and spectral Doppler imaging obtained transvaginally. FINDINGS: The uterus is normal in size, contour, and echogenicity. The endometrial stripe thickness m easures 6 mm. Tiny 4 mm cyst noted within the uterine fundus. Both the left and right ovaries are normal in size, contour, and echogenicity. Small follicles noted bilaterally. Normal color and spectral Doppler flow. No intrauterine gestational sac identified. No s ignificant free pelvic fluid. IMPRESSION: 1. Small cystic space noted within the myometrium of the uterine fundus, possibly a focal area of bertin nomyosis.
[2017-10-26] MEDS ORDERED: Ketorolac 60 MG/2 ML SDV IM ONE (11:37)
== END 2017-10-26 13:00 | disposition home or self-care (01) ==
LOC: MW.ED 09:32
DX: R10.2 Pelvic and perineal pain (principal); N39.0 Urinary tract infection, site not specified; J45.909 Unspecified asthma, uncomplicated; Z91.018 Allergy to other foods; Z87.891 Personal history of nicotine dependence
CPT/HCPCS: 36415; 76856; 80053; 81001; 81025; 85025; 87086; 87480; 87491; 87510; 87591; 87660; 96372; 99284; J1885

== ENCOUNTER 2017-11-14 18:22 | Emergency (ER) | payer MEDICAID ==
[2017-11-14] MEDS ORDERED: Ketorolac 60 MG/2 ML SDV IM ONE (18:38)
[2017-11-14] MEDS ORDERED: Benzocaine 20% Topical Spray UD MUCMEM ONE (18:40)
[2017-11-14] MEDS ORDERED: Lidocaine 2% Viscous Solution 15 ML Cup PO ONE (18:40)
--- NOTE | 2017-11-14 18:44 | EDM.PDOC ---
ED HPI GENERAL MEDICAL PROBLEM - General Chief Complaint: ENT Problem Stated Complaint: PT HAS TOOTHACHE AND FEVER Time Seen by Provider: 11/14/17 18:23 Source of Information: Reports: Patient History Limitations: Reports: No Limitations - History of Present Illness INITIAL COMMENTS - FREE TEXT/NARRATIVE: Presents reporting dental pain. The patient states that she has been to the emergency room before for the same problem. She is on the wait list at a dental clinic and has been waiting for 2-1/2 months to get in due to her Medicaid status. dental Pain Score (Numeric/FACES): 7 - Related Data Allergies Allergy/AdvReac Type Severity Reaction Status Date / Time cocoa Allergy Anaphylactic Verified 11/14/17 18:26 Shock Home Meds: Home Meds Albuterol [Proventil Neb Soln] 1 dose INH ASDIRECTED PRN 10/26/17 [History] Fluticasone/Salmeterol [Advair 500-50] 1 puff INH ASDIRECTED PRN 10/26/17 [ History] Montelukast [Singulair] 10 mg PO DAILY 10/26/17 [History] Chlorhexidine Gluconate [Peridex] 15 ml MM BID #1 bottle 11/14/17 [Rx] Clindamycin HCl [Cleocin HCl] 300 mg PO TID #30 capsule 11/14/17 [Rx] Past Medical History HEENT History: Reports: None Cardiovascular History: Reports: None Respiratory History: Reports: Asthma Gastrointestinal History: Reports: 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) Other Gastrointestinal History: ulcers Genitourinary History: Reports: None Other Genitourinary History: currently being treated fro UTI 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: , 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) Other OB/BYN History: tubes tied, Musculoskeletal History: Reports: None Neurological History: Reports: None Psychiatric History: Reports: None Endocrine/Metabolic History: Reports: None Hematologic History: Reports: None Immunologic History: Reports: None Oncologic (Cancer) History: Reports: Cervix Dermatologic History: Reports: None - Infectious Disease History Infectious Disease History: Reports: Chicken Pox - Past Surgical History Head Surgeries/Procedures: Reports: None HEENT Surgical History: Reports: None Cardiovascular Surgical History: Reports: None Respiratory Surgical History: Reports: None GI Surgical History: Reports: None Female Surgical History: Reports: None Endocrine Surgical History: Reports: None Neurological Surgical History: Reports: None Musculoskeletal Surgical History: Reports: None Other Musculoskeletal Surgeries/Procedures:: shoulder surgery x 2 Oncologic Surgical History: Reports: None Dermatological Surgical History: Reports: None Social & Family History - Family History Family Medical History: Noncontributory - Tobacco Use Smoking Status *Q: Never Smoker Second Hand Smoke Exposure: No - Caffeine Use Caffeine Use: Reports: None - Recreational Drug Use Recreational Drug Use: No ED ROS ENT - Review of Systems Review Of Systems: ROS reveals no pertinent complaints other than HPI. ED EXAM, ENT - Physical Exam Exam: See Below Exam Limited By: No Limitations General Appearance: Alert, No Apparent Distress Ears: Normal External Exam Nose: Normal Inspection Mouth/Throat: Other (Tooth #30 and #18 are rotted and #30 has an adjacent buccal abscess with swelling and tenderness) Head: Atraumatic, Normocephalic Neck: Normal Inspection, Full Range of Motion. No: Lymphadenopathy (L), Lymphadenopathy (R) Respiratory/Chest: No Respiratory Distress, Lungs Clear, Normal Breath Sounds Cardiovascular: Normal Peripheral Pulses, Regular Rate, Rhythm GI/Abdominal: Soft Back: Normal Inspection Extremities: Normal Inspection Neurological: Alert, Oriented Psychiatric: Normal Affect, Normal Mood Skin: Warm, Dry, Intact, Normal Color, No Rash Course - Vital Signs Last Recorded V/S: Last Vital Signs Temp 36.6 C 11/14/17 18:29 Pulse 77 11/14/17 18:29 Resp 18 11/14/17 18:29 BP 124/83 11/14/17 18:29 Pulse Ox 97 11/14/17 18:29 Departure - Departure Time of Disposition: 18:44 Disposition: Home, Self-Care 01 Condition: Good Clinical Impression: Dental abscess - Discharge Information Additional Instructions: 1. Follow up with dentist as previously arranged 2. Peridex swish and spit twice daily 3. Antibiotics three times daily 4. Pain medication every 8 hours as needed, no driving or operating machinery 5. Dental balls, bite down over affected tooth every 2 hours.
== END 2017-11-14 19:08 | disposition home or self-care (01) ==
LOC: MW.ED 18:22
DX: K04.7 Periapical abscess without sinus (principal); Z91.018 Allergy to other foods; Z79.899 Other long term (current) drug therapy
CPT/HCPCS: 96372; 99282; A9270; J1885

== ENCOUNTER 2018-01-19 15:12 | Emergency (ER) | payer MEDICAID, OTHER ==
--- NOTE | 2018-01-19 16:09 | EDM.PDOC ---
ED HPI GENERAL MEDICAL PROBLEM - General Chief Complaint: Flank Pain Stated Complaint: LT SIDE PAIN Time Seen by Provider: 01/19/18 15:56 Source of Information: Reports: Patient History Limitations: Reports: No Limitations - History of Present Illness INITIAL COMMENTS - FREE TEXT/NARRATIVE: HISTORY AND PHYSICAL: History of present illness: Patient is a 27-year-old female who presents to the emergency room with complaints of left hand pain and left low rib pain. She states she was moving a piece of furniture when the footing slammed on her left third and fifth digit and hitting her to the left low rib area. She states this occurred approximately 3 hours prior to arrival and the pain has not improved. She has not used any [id number] products. Skin is intact. She denies any fever, chills, chest pain, shortness of breath or cough. Denies any GI or symptoms. Review of systems: As per history of present illness and below otherwise all systems reviewed and negative. Past medical history: As per history of present illness and as reviewed below otherwise noncontributory. Surgical history: As per history of present illness and as reviewed below otherwise noncontributory. Social history: No reported history of drug or alcohol abuse. Family history: As per history of present illness and as reviewed below otherwise noncontributory. Physical exam: General: Well developed and well-nourished 27-year-old female. Alert and oriented. Nontoxic appearing and in no acute distress. HEENT: Atraumatic, normocephalic, pupils equal and reactive bilaterally, negative for conjunctival pallor or scleral icterus, mucous membranes moist, throat clear, neck supple, nontender, trachea midline. No drooling or trismus noted. No meningeal signs Lungs: Clear to auscultation, breath sounds equal bilaterally, saturated tenderness to the left low rib area (mid-axillary line). Heart: S1S2, regular rate and rhythm without overt murmur Abdomen: Soft, nondistended, nontender. Negative for masses or hepatosplenomegaly. Negative for costovertebral tenderness. Pelvis: Stable nontender. Genitourinary: Deferred. Rectal: Deferred. Skin: No bruising, soft tissue swelling or erythema noted. Intact, warm, dry. No lesions or rashes noted. Extremities: Moves all extremities per self without difficulty or deficits. She does have pain with palpation along the left fifth and third digit. Strong radial pulses bilaterally. Capillary refill less than 3 seconds. negative for cords or calf pain. Neurovascular unremarkable. Neuro: Awake, alert, oriented. Cranial nerves II through XII unremarkable. Cerebellum unremarkable. Motor and sensory unremarkable throughout. Exam nonfocal. Notes: The area the patient is describing is near the left low rib going into the flank area we'll obtain a UA and hCG U. X-rays will be done at this time as well. X-ray show no evidence of acute bone injury or abnormalities. Macrobid 100mg BID x 7 days for UTI. Tramadol 50mg, disp #10 for contusion pain. Diagnostics: UA, UC, chest x-ray with left rib detail, left hand Therapeutics: Ice Impression: Contusion, left rib Left hand, crush injury UTI Plan: 1. Rest, ice, elevate the affected extremity. 2. Tylenol and/or ibuprofen as needed for pain management. Tramadol may be used for nighttime use. This medication may cause drowsiness a do not take it will driving her needing to be functioning outside of the house. Take the antibiotic for the UTI. Increase your oral fluids. 3. Lopid your primary care provider in the next 1-2 days. Return to the ED as needed and as discussed. Definitive disposition and diagnosis as appropriate pending reevaluation and review of above. Left Hand Pain Score (Numeric/FACES): 7 Left Flank Pain Score (Numeric/FACES): 5 - Related Data Allergies Allergy/AdvReac Type Severity Reaction Status Date / Time cocoa Allergy Anaphylactic Verified 01/19/18 15:59 Shock Home Meds: Home Meds Albuterol [Proventil Neb Soln] 1 dose INH ASDIRECTED PRN 10/26/17 [History] Fluticasone/Salmeterol [Advair 500-50] 1 puff INH TID 10/26/17 [History] Montelukast [Singulair] 1 tab PO DAILY 10/26/17 [History] Albuterol Sulfate 0.63 mg IH ASDIRECTED PRN 01/19/18 [History] Past Medical History HEENT History: Reports: None Cardiovascular History: Reports: None Respiratory History: Reports: Asthma Gastrointestinal History: Reports: 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) Other Gastrointestinal History: ulcers Genitourinary History: Reports: None Other Genitourinary History: currently being treated fro UTI [employer]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 [employer]ERSON History: Reports: , 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) Other [employer]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[employer] 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[employer]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 History: tubes tied, Musculoskeletal History: Reports: None Neurological History: Reports: None Psychiatric History: Reports: None Endocrine/Metabolic History: Reports: None Hematologic History: Reports: None Immunologic History: Reports: None Oncologic (Cancer) History: Reports: Cervix Dermatologic History: Reports: None - Infectious Disease History Infectious Disease History: Reports: Chicken Pox - Past Surgical History Head Surgeries/Procedures: Reports: None HEENT Surgical History: Reports: None Cardiovascular Surgical History: Reports: None Respiratory Surgical History: Reports: None GI Surgical History: Reports: None Female Surgical History: Reports: None Endocrine Surgical History: Reports: None Neurological Surgical History: Reports: None Musculoskeletal Surgical History: Reports: None Other Musculoskeletal Surgeries/Procedures:: shoulder surgery x 2 Oncologic Surgical History: Reports: None Dermatological Surgical History: Reports: None Social & Family History - Family History Family Medical History: Noncontributory - Caffeine Use Caffeine Use: Reports: Coffee, Energy Drinks, Soda, Tea ED ROS GENERAL - Review of Systems Review Of Systems: ROS reveals no pertinent complaints other than HPI. ED EXAM, GENERAL - Physical Exam Exam: See Below (See dictation) Course - Vital Signs Last Recorded V/S: Last Vital Signs Temp 97.6 F 01/19/18 16:01 Pulse 78 01/19/18 16:01 Resp 15 01/19/18 16:01 BP 127/76 01/19/18 16:01 Pulse Ox 98 01/19/18 16:01 - Orders/Labs/Meds Orders: Active Orders 24 hr Category Date Time Status Hand 2V Lt [CR] Stat Exams 01/19/18 16:04 Ordered Ribs 2V w Chest Lt [CR] Stat Exams 01/19/18 16:05 Ordered HCG QUALITATIVE,URINE [URCHEM] Stat Lab 01/19/18 15:59 Ordered UA W/MICROSCOPIC [URIN] Stat Lab 01/19/18 15:59 Ordered Labs: Laboratory Tests 01/19/18 01/19/18 Range/Units 15:59 15:59 Urine Color YELLOW Urine Appearance CLEAR Urine pH 5.5 (5.0-8.0) Ur Specific Witter >= 1.030 (1.001-1.035) Urine Protein NEGATIVE (NEGATIVE) mg/dL Urine Glucose (UA) NEGATIVE (NEGATIVE) mg/dL Urine Ketones NEGATIVE (NEGATIVE) mg/dL Urine Occult Blood NEGATIVE (NEGATIVE) Urine Nitrite POSITIVE H (NEGATIVE) Urine Bilirubin NEGATIVE (NEGATIVE) Urine Urobilinogen 0.2 (<2.0) EU/dL Ur Leukocyte Esterase NEGATIVE (NEGATIVE) Urine RBC 0-2 (0-2/HPF) Urine WBC 1-3 (0-5/HPF) Ur Epithelial Cells MODERATE (NONE-FEW) Urine Bacteria FEW (NEGATIVE) Urine Mucus MODERATE (NONE-MOD) Urine HCG, Qual NEGATIVE (NEGATIVE) Departure - Departure Time of Disposition: 17:09 Disposition: Home, Self-Care 01 Clinical Impression: UTI, Urinary tract infectious disease, Crush injury Contusion Qualifiers: Encounter type: initial encounter Contusion area: thoracic wall Contusion of thoracic wall detail: front wall of thorax Laterality: left Qualified Code(s): S20.212A - Contusion of left front wall of thorax, initial encounter - Discharge Information Instructions: Crush Injury of the Hand, Urinary Tract Infection, Adult, Easy-to -Read Referrals: Leticia Rodgers DO [Primary Care Provider] - Forms: ED Department Discharge Additional Instructions: The following information is given to patients seen in the emergency department who are being discharged to home. This information is to outline your options for follow-up care. We provide all patients seen in our emergency department with a follow-up referral. The need for follow-up, as well as the timing and circumstances, are variable depending upon the specifics of your emergency department visit. If you don't have a primary care physician on staff, we will provide you with a referral. We always advise you to contact your personal physician following an emergency department visit to inform them of the circumstance of the visit and for follow-up with them and/or the need for any referrals to a consulting specialist. The emergency department will also refer you to a specialist when appropriate. This referral assures that you have the opportunity for follow-up care with a specialist. All of these measure are taken in an effort to provide you with optimal care, which includes your follow-up. Under all circumstances we always encourage you to contact your private physician who remains a resource for coordinating your care. When calling for follow-up care, please make the office aware that this follow-up is from your recent emergency room visit. If for any reason you are refused follow-up, please contact the [facility] at and asked to speak to the emergency department charge nurse. [facility] [address] [place] [id number] 1. Rest, ice, elevate the affected extremity. 2. Tylenol and/or ibuprofen as needed for pain management. Tramadol may be used for nighttime use. This medication may cause drowsiness a do not take it will driving her needing to be functioning outside of the house. Take the antibiotic for the UTI. Increase your oral fluids. 3. Lopid your primary care provider in the next 1-2 days. Return to the ED as needed and as discussed. - My Orders Last 24 Hours: My Active Orders 01/19/18 15:59 HCG QUALITATIVE,URINE [URCHEM] Stat UA W/MICROSCOPIC [URIN] Stat 01/19/18 16:04 Hand 2V Lt [CR] Stat 01/19/18 16:05 Ribs 2V w Chest Lt [CR] Stat - Assessment/Plan Last 24 Hours: My Active Orders 01/19/18 15:59 HCG QUALITATIVE,URINE [URCHEM] Stat UA W/MICROSCOPIC [URIN] Stat 01/19/18 16:04 Hand 2V Lt [CR] Stat 01/19/18 16:05 Ribs 2V w Chest Lt [CR] Stat
--- NOTE | 2018-01-19 17:50 | CR ---
EXAM DATE: 01/19/18 PATIENT'S AGE: 27 Patient: NICK TORRES Facility: [place], [place] Site . Site : 1990 Study: XRay Extremity Left Hand-01/19/2018 4:55:10 PM Ordering Physician: Doctor Monroe Final Report: INDICATION: Pain in 3rd digit TECHNIQUE: Hand radiograph 2 views left COMPARISON: None FINDINGS: Bones: No acute fractures or aggressive bone lesions are identified. Joints: The carpal and metacarpal-phalangeal joints are unremarkable in appearance. The interphalangeal joints are normal in appearance. Soft tissues: Unremarkable. No radiopaque foreign bodies are seen. IMPRESSION: 1. No acute osseous injuries or abnormalities are noted. Dictated by: Paul Hilliard MD @ 01/19/2018 17:06:07 (Electronic Signature) Report Signed by Proxy. GIO
--- NOTE | 2018-01-19 17:51 | CR ---
EXAM DATE: 01/19/18 PATIENT'S AGE: 27 Patient: NICK TORRES Facility: [place], [place] Site . Site : 1990 Study: XRay Extremity Left Ribs [id number]/13/2018 4:55:48 PM Ordering Physician: Doctor Monroe Final Report: INDICATION: Injury and low rib pain TECHNIQUE: Rib radiograph 5 views left COMPARISON: None FINDINGS: Bones: No definite acute rib fractures are identified in the visualized ribs. The remaining osseous structures are unremarkable for age. Lungs: Both lungs are unremarkable in appearance. No sign of pleural effusion seen. No pneumothorax is identified. IMPRESSION: 1. No acute osseous injuries or abnormalities seen. Dictated by: Paul Hilliard MD @ 01/19/2018 17:07:52 (Electronic Signature) Report Signed by Proxy. GIO
== END 2018-01-19 17:21 | disposition home or self-care (01) ==
LOC: MW.ED 15:12
DX: S67.22XA Crushing injury of left hand, initial encounter (principal); S67.197A Crushing injury of left little finger, initial encounter; S67.193A Crushing injury of left middle finger, initial encounter; S20.212A Contusion of left front wall of thorax, initial encounter; N39.0 Urinary tract infection, site not specified; Z79.899 Other long term (current) drug therapy; W23.0XXA Caught, crushed, jammed, or pinched between moving objects, initial encounter
CPT/HCPCS: 71101-26-LT; 71101-LT; 73120-26-LT; 73120-LT; 81001; 81025; 99283; 99284